=== PATIENT | male | born 2000 | race Asian ===

== ENCOUNTER → 2018-11-16 14:42 | Outpatient (CLI) | payer BC, SELFPAY ==
--- NOTE | 2018-11-16 14:46 | DI.RAD.S_ITS ---
PROCEDURE: XR CHEST 2V INDICATIONS: 8mm positive PPD, r/o TB TECHNIQUE: 2 views of the chest were acquired. COMPARISON: None. FINDINGS: Surgical changes and devices: None. Lungs and pleura: Lungs are clear. No pleural effusions or pneumothorax. No evidence to suggest active or chronic tuberculosis is evident. No definite cavitary lesions within the lungs are present. No focal pulmonary consolidation is evident. Mediastinum: Mediastinal contours are normal. Heart size is normal. Bones and chest wall: No suspicious bony abnormalities. Soft tissues appear unremarkable. IMPRESSION: No evidence to suggest active or chronic pulmonary tuberculosis. Dictated by: Kiel Aguiar M.D. on 11/16/2018 at 14:09 Approved by: Kiel Aguiar M.D. on 11/16/2018 at 14:12
== END ==
PROVIDERS: Family Provider Pediatrics; PCP Pediatrics; Visit Provider Physician Assistant
DX: R76.11 Nonspecific reaction to tuberculin skin test without active tuberculosis (principal)
CPT/HCPCS: 71046

== ENCOUNTER 2020-02-02 15:07 | Emergency (ER) | payer OTHER, BC, SELFPAY ==
[2020-02-02 15:12] VITALS: BP 137/69; PULSE 112; RESP 17; TEMP 37.2; O2SAT 96; BMI 26.4
--- NOTE | 2020-02-02 15:15 | DI.RAD.S_ITS ---
PROCEDURE: XR ANKLE RT MIN 3V INDICATIONS: fall TECHNIQUE: 3 views of the ankle were acquired. COMPARISON: [facility], , TIB/FIB 2V RIGHT, 08/02/2014, 15:26. FINDINGS: Bones: There is a small bony fragment adjacent to the distal fibula, as before, consistent with a congenital ossicle. Ankle mortise is normally aligned. No suspicious bony lesions. Soft tissues: No tibiotalar joint effusion. Achilles tendon appears normal. IMPRESSION: No acute fracture. No osseous lesion. If symptoms and/or clinical suspicion for pathology persist, further assessment with repeat, or advanced imaging (e.g., CT, MRI, or bone scan) may be helpful for further assessment. Dictated by: Fabiana Jerome M.D. on 02/02/2020 at 15:29 Approved by: Fabiana Jerome M.D. on 02/02/2020 at 15:30
[2020-02-02] MEDS: IBUPROFEN 400 MG TABLET PO (15:47)
[2020-02-02] MEDS: ACETAMINOPHEN 325 MG TABLET 650 MG PO (15:47)
--- NOTE | 2020-02-02 16:43 | ED_ITS ---
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 Patient reports he accidentally missed a step on on affected foot inverted right ankle. He reports previous injury to right ankle but this was healed without surgery. Patient reports intact sensation and is able to move all his toes without difficulty. Patient reports pain increases with bearing weight. He rates pain as 5/10 and has not taken medications before coming into ED. Related Data Home Medications Medication Instructions Recorded Confirmed No Known Home Medications 09/15/17 09/16/17 Allergies Allergy/AdvReac Type Severity Reaction Status Date / Time ofloxacin Allergy Unknown VOMITING Verified 09/16/17 14:15 EAR MEDICATIONS Allergy Unknown Uncoded 09/16/17 14:15 Review of Systems <POONAM Jacinto - Last Filed: 02/02/20 16:54> Review of Systems Narrative: General: Denies fever, chills, fatigue, malaise, sweats. Respiratory: Denies dyspnea, cough, wheezing, hemoptysis, sputum. Cardiovascular: Denies chest pain, palpitations, orthopnea, edema. Gastrointestinal: Denies nausea, vomiting, abdominal pain, diarrhea, constipation, melena. Musculoskeletal: See HPI Skin: Denies rash, skin lesions, or other. Patient History <POONAM Jacinto - Last Filed: 02/02/20 16:54> Surgical History No pertinent past surgical history Social History Smoking Status: Never smoker Smoking Status: Never smoker alcohol intake frequency: other Substance Use Type: does not use Exam <POONAM Jacinto - Last Filed: 02/02/20 16:54> Narrative Exam Narrative: General appearance: well developed, well nourished, in no acute distress. Head: normocephalic, atraumatic, no scalp lesions, non-tender. ENT: Hearing grossly intact. Airway patent. Neck/Thyroid: neck supple, full range of motion, no visible masses or meningeal signs. No JVD, non-tender without lymphadenopathy. Skin: no suspicious rashes, lesions over visible areas. Warm and dry and appropriate color for ethnicity. Heart: no clubbing, no cyanosis, no edema. Lungs: Breathing even and unlabored. No stridor. No accessory muscles used. Able to speak in full sentences. Chest: normal shape and expansion. Abdomen: non-obese, non-distended. Neurologic: alert and oriented. Cognitive exam, [employer] and PNS grossly intact on informal exam. Psych: good eye contact, normal affect. Initial Vital Signs Initial Vital Signs: Vital Signs Temperature 99 F 02/02/20 15:12 Pulse Rate 112 H 02/02/20 15:12 Respiratory Rate 17 02/02/20 15:12 Blood Pressure 137/69 02/02/20 15:12 Pulse Oximetry 96 02/02/20 15:12 Extrem Right lower extremity: knee Details: normal to inspection; no tenderness and no swelling, lower leg Details: normal to inspection; no tenderness and no localized swelling, ankle Details: normal to inspection, tenderness Location: of the lateral malleolus, no edema and normal ROM; no swelling, no unusual warmth, no lacerations, no ecchymosis, no crepitus and no penetrating wound and foot Details: normal capillary refill, normal to inspection, toes with normal ROM and vascular exam Details: dorsalis pedis pulse present and normal capillary refill; no tenderness <Robyn Cardenas MD - Last Filed: 02/09/20 07:24> Initial Vital Signs Initial Vital Signs: Vital Signs Temperature 99 F 02/02/20 15:12 Pulse Rate 112 H 02/02/20 15:12 Respiratory Rate 17 02/02/20 15:12 Blood Pressure 137/69 02/02/20 15:12 Pulse Oximetry 96 02/02/20 15:12 Procedures <POONAM Jacinto - Last Filed: 02/02/20 16:54> Orthopedic Splinting/Casting Injury #1: Side: right Lower Extremity Injury Location: ankle Lower Extremity Immobilizer: Ruben wrap Other Orthopedic Equipment: other (declines) Post splinting neuro exam: intact Post splinting vascular exam: intact Placed by: Nursing Scores <POONAM Jacinto - Last Filed: 02/02/20 16:54> [facility] [place] coma scale eye opening: Spontaneous [place] coma scale verbal response: Orientated [place] coma scale motor response: [place]bey commands [place] coma scale total score: 15 Course <POONAM Jacinto - Last Filed: 02/02/20 16:54> Orders Ordered: Discontinued Medications Acetaminophen (Acetaminophen 325 Mg Tablet) 650 mg PO NOW ONE Stop: 02/02/20 15:30 Last Admin: 02/02/20 15:47 Dose: 650 mg Documented by: MELISSAARTIN Ibuprofen (Ibuprofen 400 Mg Tablet) 400 mg PO NOW ONE Stop: 02/02/20 15:30 Last Admin: 02/02/20 15:47 Dose: 400 mg Documented by: SAVI Vital Signs Vital signs: Vital Signs - 8 hr 02/02/20 15:12 Temperature 99 F Pulse Rate 112 H Respiratory Rate 17 Blood Pressure 137/69 Pulse Oximetry 96 <Robyn Cardenas MD - Last Filed: 02/09/20 07:24> Orders Ordered: Discontinued Medications Acetaminophen (Acetaminophen 325 Mg Tablet) 650 mg PO NOW ONE Stop: 02/02/20 15:30 Last Admin: 02/02/20 15:47 Dose: 650 mg Documented by: MELISSAARTIN Ibuprofen (Ibuprofen 400 Mg Tablet) 400 mg PO NOW ONE Stop: 02/02/20 15:30 Last Admin: 02/02/20 15:47 Dose: 400 mg Documented by: SAVI Vital Signs Vital signs: Vital Signs - 8 hr 02/02/20 15:12 Temperature 99 F Pulse Rate 112 H Respiratory Rate 17 Blood Pressure 137/69 Pulse Oximetry 96 MDM - Extremity Injury (Lower) <POONAM Jacinto - Last Filed: 02/02/20 16:54> Differential Diagnosis Differential diagnosis: Likely ankle sprain and strain and ankle fracture Medical Records Attestation: I reviewed the patient's medical records. Imaging Data XR-Ankle RT: Radiologist's Impression: [address] [id number] ReportSigned Patient: Gilberto Kumar LMR#: [id number]: [id number]:[id number]/Sex: 19 / MDate of Service: 02/02/20Loc: EDAccession Number: [id number] Procedure: XR ankle RT min 3V Ordering Provider: Demetris Mills PROCEDURE: XR ANKLE RT MIN 3V INDICATIONS: fall TECHNIQUE: 3 views of the ankle were acquired. COMPARISON: [facility], , TIB/FIB 2V RIGHT, 08/02/2014, 15:26. FINDINGS: Bones: There is a small bony fragment adjacent to the distal fibula, as before, consistent with a congenital ossicle. Ankle mortise is normally aligned. No suspicious bony lesions. Soft tissues: No tibiotalar joint effusion. Achilles tendon appears normal. IMPRESSION: No acute fracture. No osseous lesion. If symptoms and/or clinical suspicion for pathology persist, further assessment with repeat, or advanced imaging (e.g., CT, MRI, or bone scan) may be helpful for further assessment. Dictated by: Fabiana Jerome M.D. on 02/02/2020 at 15:29 Approved by: Fabiana Jerome M.D. 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 Patient has intact sensation, cap refill, dorsalis pedal pulse. Patient is able to plantar flex and dorsiflex affected foot against resistance. Patient is able to move all his toes without difficulty. X-ray test does not show acute fractures or dislocations. 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 Patient declined crutches. Patient elected to use Ruben wrap for support. Advised RICE therapy and to take [id number] Tylenol and or Motrin as needed for discomfort. Return precautions were discussed and patient verbalized understanding and agreement with the treatment plan. Discharge Plan Departure Patient Disposition: Home Clinical Impression: Ankle sprain and strain Instructions: DI for Ankle Pain Activity Restrictions/Additional Instructions: You have been diagnosed with [right lateral ankle pain likely from stay brain/strain. X-ray test does not show acute findings such as fractures or dislocations. However there is a small bony fragment to the distal fibula which was seen in the past x-ray in 2015. ]. What to do: *Take your medications as directed. You can use [id number] Tylenol and or Motrin as needed for discomfort. Tylenol 650-1000 mg to 3 times a day as needed. Ibuprofen 400-600 mg up to 3 times a day as needed for pain but please take it with food to decrease GI irritations. You can use Ruben wrap to give support and elevate affected leg during rest. *Follow up with your primary care provider in 2-3 days, call for an appointment. Let them know you were seen in the ED and that we asked you to be seen in follow up. *Return to ED if you have any new, worsening, or concerning symptoms, such as [worsening pain, tingling/numbness/weakness to affected leg, chest pain, breathing difficulty, fever, unable to tolerate fluids or any acute concerns]. Prescriptions: No Action No Known Home Medications RF: 0 Referrals: Janet Foster MD [Primary Care Provider] - <Robyn Cardenas MD - Last Filed: 02/09/20 07:24> Cosign ED Attending Cosledaature Attestation: I was immediately available in the department for consultation throughout this patient's visit. I agree with documentation as above. Robyn Cardenas MD
[2020-02-02 16:55] VITALS: BP 127/79; PULSE 97; RESP 16; O2SAT 95
== END 2020-02-02 16:56 | disposition home or self-care (01) ==
PROVIDERS: Emergency Provider Nurse Practitioner Family; Family Provider Pediatrics; PCP Pediatrics
DX: S93.401A Sprain of unspecified ligament of right ankle, initial encounter (principal); S96.911A Strain of unspecified muscle and tendon at ankle and foot level, right foot, initial encounter; W19.XXXA Unspecified fall, initial encounter
CPT/HCPCS: 73610; 99283

== ENCOUNTER → 2021-03-22 12:07 | Outpatient (CLI) | payer BC, SELFPAY ==
[2021-03-22 13:05] LABS: COVID19 -Nasal RAPID Negative (Negative)
== END ==
PROVIDERS: Family Provider Pediatrics; PCP Pediatrics; Visit Provider Nurse Practitioner Family
DX: Z20.822 Contact with and (suspected) exposure to COVID-19 (principal)
CPT/HCPCS: 87635